=== PATIENT | female | born 1965 | race Hispanic/Latino ===

== ENCOUNTER 2020-10-23 13:12 | Emergency (ER) | payer SELFPAY ==
[2020-10-23] MEDS ORDERED: Meclizine HCl 25 MG TAB ONE (13:58)
== END 2020-10-23 14:21 | disposition home or self-care (01) ==
LOC: MADERS 13:12
DX: H81.10 Benign paroxysmal vertigo, unspecified ear (principal); E11.9 Type 2 diabetes mellitus without complications; E78.5 Hyperlipidemia, unspecified; E78.00 Pure hypercholesterolemia, unspecified
CPT/HCPCS: 99283